=== PATIENT | female | born 1950 | race African-American/Black ===

== ENCOUNTER 2022-12-08 08:11 | Emergency (ER) | payer MEDICARE, OTHER ==
[2022-12-08 09:37] LABS: #Lymphocytes 1.5 thou/uL (1.20-3.40); #Monocytes 0.7 thou/uL (0.11-0.59); #Neutrophils 3.3 thou/uL (1.40-6.50); %Basophils 0.9 % (0.0-1.0); %Eosinophils 0.1 % (0.0-10.0); %Lymphocytes 27.5 % (21.0-51.0); %Monocytes 12.2 % (0.0-10.0); %Neutrophils 59.4 % (42.0-75.0); Hematocrit 34.1 % (36.0-47.0); Hemoglobin 11.6 g/dL (12.0-16.0); Mean Corpuscular HGB CONC 34.1 g/dL (32.0-36.0); Mean Corpuscular Hemoglobin 31.9 pg (27.0-31.0); Mean Corpuscular Volume 93.7 fl (78.0-98.0); Mean Platelet Volume 9.1 fL (7.4-10.4); Platelet Count 178 10x3/uL (130-400); RBC Distribution Width 12.5 % (11.5-14.5); Red Blood Cell (RBC) Count 3.64 mill/uL (4.20-5.40); White Blood Cell (WBC) Count 5.5 10x3/uL (4.8-10.8)
[2022-12-08 09:52] LABS: Anion Gap 18 mmol/L (10-20); BUN (Urea Nitrogen) 13 mg/dL (9.8-20.1); Calc. Creatinine Clearance 0 mL/min (70-130); Calcium 9.2 mg/dL (7.8-10.44); Carbon Dioxide 18 mmol/L (23-31); Chloride 106 mmol/L (98-107); Estimated GFR 44; Glucose 130 mg/dL (83-110); Potassium 2.7 mmol/L (3.5-5.1); Sodium 139 mmol/L (136-145)
[2022-12-08 09:59] LABS: Troponin I 0.038 ng/mL (< 0.028)
[2022-12-08] MEDS ORDERED: Ipratropium/Albuterol 3 ML NEB ONE (10:20)
[2022-12-08] MEDS ORDERED: NS 0.9% w/ 20 MEQ KCL 0 ML ONE (10:41)
[2022-12-08] MEDS ORDERED: Aspirin Chewable 81 MG TAB ONE (10:48)
[2022-12-08] MEDS ORDERED: NS 0.9% w/ 20 MEQ KCL 1,000 ML ONE (10:48)
[2022-12-08] MEDS ORDERED: Potassium Chloride 20 MEQ TAB ONE (11:14)
[2022-12-08 11:48] LABS: SARS-CoV-2 NAA Rapid Test Not Detected (NotDetected)
== END 2022-12-08 12:20 | disposition short-term general hospital (02) ==
LOC: MADERS 08:11 → EDBD 08:11 → MADERS 12:20
DX: R06.00 Dyspnea, unspecified (principal); R05.9 Cough, unspecified; E87.6 Hypokalemia; I10 Essential (primary) hypertension; F17.210 Nicotine dependence, cigarettes, uncomplicated; Z20.822 Contact with and (suspected) exposure to COVID-19
CPT/HCPCS: 71045; 80048; 84484; 85025; 93005; 96365; 99285; U0002; J3480; J7620

== ENCOUNTER 2023-05-04 10:18 | Emergency (ER) | payer MEDICARE ==
[2023-05-04 11:18] LABS: Phosphorus 2.2 mg/dL (2.3-4.7)
[2023-05-04 11:20] LABS: ALT (SGPT) 12 U/L (8-55); AST (SGOT) 17 U/L (5-34); Albumin 4.1 g/dL (3.4-4.8); Alkaline Phosphatase 84 U/L (40-110); Anion Gap 13 mmol/L (10-20); BUN (Urea Nitrogen) 10 mg/dL (9.8-20.1); Bilirubin, Total 0.3 mg/dL (0.2-1.2); Calc. Creatinine Clearance 0 mL/min (70-130); Calcium 9.1 mg/dL (7.8-10.44); Carbon Dioxide 22 mmol/L (23-31); Chloride 109 mmol/L (98-107); Estimated GFR 81; Globulin 3.9 g/dL (2.4-3.5); Glucose 95 mg/dL (83-110); Magnesium 1.7 mg/dL (1.6-2.6); Sodium 142 mmol/L (136-145)
[2023-05-04 11:30] LABS: Potassium 2.4 mmol/L (3.5-5.1)
[2023-05-04] MEDS ORDERED: Potassium Chloride 20 MEQ TAB ONE (11:44)
[2023-05-04] MEDS ORDERED: NS 0.9% w/ 20 MEQ KCL 1,000 ML ONE (11:45)
== END 2023-05-04 14:33 | disposition home or self-care (01) ==
LOC: MADERS 10:18
DX: E87.6 Hypokalemia (principal); I10 Essential (primary) hypertension; Z79.899 Other long term (current) drug therapy; F17.210 Nicotine dependence, cigarettes, uncomplicated
CPT/HCPCS: 80053; 83735; 84100; 93005; 96365; 96366; J3480

== ENCOUNTER 2024-02-07 09:13 | Emergency (ER) | payer MEDICARE ==
[2024-02-07 11:38] LABS: Anion Gap 14 mmol/L (10-20); BUN (Urea Nitrogen) 10 mg/dL (9.8-20.1); Calc. Creatinine Clearance 0 mL/min (70-130); Calcium 8.9 mg/dL (7.8-10.44); Carbon Dioxide 22 mmol/L (23-31); Chloride 110 mmol/L (98-107); Estimated GFR 58; Glucose 130 mg/dL (83-110); Sodium 144 mmol/L (136-145)
[2024-02-07 11:41] LABS: Critical Call Chemistry NUR.MWC@1141; Potassium 1.9 mmol/L (3.5-5.1)
[2024-02-07] MEDS ORDERED: NS 0.9% w/ 20 MEQ KCL 0 ML ONE (11:47)
[2024-02-07] MEDS ORDERED: Potassium Chloride 20 MEQ (100 mL) BAG ONE (11:53)
[2024-02-07] MEDS ORDERED: NS 0.9% w/ 20 MEQ KCL 1,000 ML ONE (11:53)
[2024-02-07] MEDS ORDERED: Potassium Chloride 20 MEQ TAB ONE (11:54)
== END 2024-02-07 16:16 | disposition home or self-care (01) ==
LOC: MADERS 09:13
DX: E87.6 Hypokalemia (principal); I10 Essential (primary) hypertension; F17.210 Nicotine dependence, cigarettes, uncomplicated
CPT/HCPCS: 36415; 80048; 96365; 96366; J3480